=== PATIENT | female | born 1945 | race Caucasian/White ===

== ENCOUNTER → 2022-12-25 | Outpatient (CLI) | payer MEDICARE, OTHER ==
--- NOTE | 2022-12-25 15:32 | US ---
EXAMINATION TYPE: US venous doppler duplex LE BI DATE OF EXAM: 12/25/2022 12:51 PM COMPARISON: NONE CLINICAL INDICATION: Female, 77 years old with history of R60.0 LOCALIZED EDEMA; edema SIDE PERFORMED: Bilateral TECHNIQUE: The lower extremity deep venous system is examined utilizing real time linear array sonog jay jay with graded compression, doppler sonography and color-flow sonography. VESSELS IMAGED: Common Femoral Vein Deep Femoral Vein Greater Saphenous Vein * Femoral Vein Popliteal Vein Small Saphenous Vein * Proximal Calf Veins (* superficial vessels) Right Leg: Negative for DVT Left Leg: Negative for DVT IMPRESSION: No evidence for DVT within the bilateral lower extremities imaged from the groin to the upper calves.
== END | disposition home or self-care (01) ==
LOC: RADUSWWP 12:24
PROVIDERS: ATTEND Family Medicine
DX: R60.0 Localized edema (principal)
CPT/HCPCS: 93970

== ENCOUNTER → 2023-01-13 | Outpatient (CLI) | payer MEDICARE, OTHER ==
--- NOTE | 2023-01-14 07:08 | BD ---
EXAMINATION TYPE: Axial Bone Density DATE OF EXAM: 01/13/2023 CLINICAL HISTORY: 77 years old Female. ICD-10 CODE: M89.9 DISORDER OF BONE Height: 5 ft 3 in Weight: 179 FRAX RISK QUESTIONS: Alcohol (3 or more units per day): no Family History (Parent hip fracture): no Glucocorticoids (More than 3mos): yes (Ex: prednisone, prednisolone, methylprednisolone, dexamethasone, and hydrocortisone). History of Fracture in Adulthood: yes Secondary Osteoporosis: 1. Type 1 Diabetes: type 2 2. Hyperthyroidism: no 3. Menopause before 45: no 4. Malnutrition: no 5. 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 Rheumatoid Arthritis: no Current Tobacco Use: no RISK FACTORS HISTORY OF: Surgery to Spine/Hip(right/left)/Wrist (right/left): no Family History of Osteoporosis: yes Active: yes Diet low in dairy products/other sources of calcium: no Postmenopausal woman: yes Take estrogen and/or progesterone medications: no Lost more than 2 inches in height since high school: yes Frequent falls: yes Poor Health: fair Hyperparathyroidism: no Adrenal Insufficiency: no MEDICATIONS: Prednisone or other steroids: yes How Lon years Thyroid Medications: yes Which medication: levothyroxine How Lon-7 years Additional Medications: rosuvastatin, valsartan, atenolol, prednisone, gabapentin, furosemide, meloxi cam, glimepiride, januvia, levothyroxine, pioglitazone, oxybutin, insulin Additional History: EXAM MEASUREMENTS: Bone mineral densitometry was performed using the [employer] System. Bone mineral density as measured about the Lumbar spine is: ----- L1-L4(G/cm2): 1.621 T Score Values are as follows: ----- L1: 1.0 ----- L2: 3.3 ----- L3: 4.5 ----- L4: 5.1 ----- L1-L4: 3.7 Z Score Values are as follows: ----- L1: 2.2 ----- L2: 4.6 ----- L3: 5.8 ----- L4: 6.4 ----- L1-L4: 4.9 baseline Bone mineral density about the R hip (g/cm2): 0.959 Bone mineral density about the L hip (g/cm2): 0.922 T Score values are as follows: -----R Neck: -0.6 -----L Neck: -0.8 -----R Total: 0.8 -----L Total: 0.7 Z Score values are as follows: -----R Neck: 1.2 -----L Neck: 0.9 -----R Total: 2.3 -----L Total: 2.2 baseline FRAX%s: The graph provided illustrates a 22.6 % chance for a major osteoporotic fx and a 3.9 % chance for the hips probability for fx in 10 years time. IMPRESSION: Normal (Values between +1 and -1 indicate normal bone mass). Consider repeating this study in 5 year s or sooner if there is some new clinical indication. NOTE: T-SCORE=SD OF THE YOUNG ADULT MEAN.
--- NOTE | 2023-01-14 15:49 | MM ---
Reason for Exam: Screening (asymptomatic). Last mammogram was performed 2 year(s) and 4 month(s) ago. Patient History: Menarche at age 8. First Full-Term at age 20. Postmenopausal. Paternal aunt had breast cancer under age 50. Paternal grandmother had breast cancer at or over age 50. Risk Values: Masha 5 year model risk: 1.7%. NCI Lifetime model risk: 3.0%. Prior Study Comparison: 09/14/2020 Bilateral Screening Mammogram, [facility]. Tissue Density: There are scattered fibroglandular densities. Findings: Analyzed By CAD. Bilateral benign-appearing calcific patient's. There is no suspicious group of microcalcifications or new suspicious mass in either breast. Overall Assessment: Benign, BI-RAD 2 Management: Screening Mammogram of both breasts in [address] [facility] will attempt to contact patient to return for supplemental views and ultrasound if indicated. Patient should continue monthly self-breast exams. A clinical breast exam by your physician is recommended on an annual basis. This exam should not preclude additional follow-up of suspicious palpable abnormalities. Note on Masha scores and lifetime risk: 1. A Masha score greater than 3% is considered moderate risk. If this is the case, consider specialist referral to assess eligibility for a risk reducing agent. 2. If overall lifetime risk for the development of breast cancer is 20% or higher, the patient may qualify for future screening with alternating mammogram and breast MRI. Electronically signed and approved by: Lukas Granados DO
== END | disposition home or self-care (01) ==
LOC: RADMAMWWP 13:42
PROVIDERS: ATTEND Family Medicine
DX: Z12.31 Encounter for screening mammogram for malignant neoplasm of breast (principal); M89.9 Disorder of bone, unspecified; E10.9 Type 1 diabetes mellitus without complications; Z78.0 Asymptomatic menopausal state; Z80.3 Family history of malignant neoplasm of breast
CPT/HCPCS: 77063; 77067; 77080

== ENCOUNTER 2023-05-03 14:40 | Emergency (ER) | payer MEDICARE, OTHER ==
[2023-05-03 16:36] LABS: Basophils % (A) 0 %; Eosinophils # (A) 0.4 k/uL (0-0.7); Eosinophils % (A) 4 %; HCT 44.9 % (34.0-46.0); HGB 14.3 gm/dL (11.4-16.0); Lymphocytes % (A) 10 %; MCH 29.4 pg (25.0-35.0); MCV 92.1 fL (80.0-100.0); Mean Platelet Volume 7.4; Monocytes # (A) 0.5 k/uL (0-1.0); Monocytes % (A) 5 %; Neutrophils # (A) 7.5 k/uL (1.3-7.7); Neutrophils % (A) 79 %; Platelet Count 185 k/uL (150-450); RBC 4.87 m/uL (3.80-5.40); RDW 15.7 % (11.5-15.5); WBC 9.6 k/uL (3.8-10.6)
[2023-05-03 16:43] LABS: ALT 35 U/L (4-34); AST 29 U/L (14-36); African American GFR (CKD) >90 (>60 ml/min/1.73 sqM); Albumin 3.7 g/dL (3.5-5.0); Alkaline Phosphatase 45 U/L (38-126); Anion Gap 7 mmol/L; Blood Urea Nitrogen 18 mg/dL (7-17); Calcium 9.9 mg/dL (8.4-10.2); Carbon Dioxide 30 mmol/L (22-30); Chloride 99 mmol/L (98-107); Glucose 255 mg/dL (74-99); Non-African American GFR(CKD) 86 (>60 ml/min/1.73 sqM); Potassium 3.8 mmol/L (3.5-5.1); Sodium 136 mmol/L (137-145); Total Bilirubin 0.4 mg/dL (0.2-1.3); Total Protein 6.4 g/dL (6.3-8.2)
--- NOTE | 2023-05-03 18:43 | ED ---
Female Urogenital HPI - General Chief complaint: Vaginal Bleeding Stated complaint: spotting Time Seen by Provider: 05/03/23 18:01 Source: patient Mode of arrival: ambulatory Limitations: no limitations - History of Present Illness Initial comments: 77-year-old female presenting to the ED with a chief complaint of vaginal bleeding. Patient states for the past 2-3 days has had some lower abdominal cramping and vaginal spotting. Reports minimal pad usage over the past few days. Denies lightheadedness or dizziness. Notes that she is passing blood cl ots when she urinates however is unsure if this is coming from her urine or from her vagina however denies dysuria, frequency, urgency. Currently notes abdominal pain resolved. No chest pain or shortness of breath. No other complaints. - Related Data Allergies Allergy/AdvReac Type Severity Reaction Status Date / Time Penicillins Allergy Rash/Hives Verified 05/03/23 14:50 Sulfa (Sulfonamide Allergy Rash/Hives Verified 05/03/23 14:50 Antibiotics) Review of Systems ROS Statement: Those systems with pertinent positive or pertinent negative responses have been documented in the HPI. ROS Other: All systems not noted in ROS Statement are negative. Past Medical History Past Medical History: Coronary Artery Disease (CAD), Diabetes Mellitus, Rheumatoid Arthritis (RA) History of Any Multi-Drug Resistant Organisms: None Reported Past Surgical History: Orthopedic Surgery, Tubal Ligation Additional Past Surgical History / Comment(s): Tumor on back of her head. Past Psychological History: No Psychological Hx Reported Smoking Status: Never smoker Past Alcohol Use History: None Reported Past Drug Use History: None Reported General Exam Limitations: no limitations General appearance: alert, in no apparent distress Neck exam: Present: normal inspection Respiratory exam: Present: normal lung sounds bilaterally Cardiovascular Exam: Present: regular rate, normal rhythm GI/Abdominal exam: Present: soft External exam: Present: other (Exam chaperoned by Janette BELLO. Small clot noted in vaginal vault with no active bleeding. Bimanual exam showed left adnexal tenderness to palpation however no obvious masses noted.) Neurological exam: Present: alert, oriented X3 Skin exam: Present: warm, dry Course Vital Signs 05/03/23 14:46 Temperature 98.1 F Pulse Rate 64 Respiratory 20 Rate Blood Pressure 213/88 O2 Sat by Pulse 96 Oximetry Medical Decision Making - Medical Decision Making Was pt. sent in by a medical professional or institution (JOSHUA Brown, PARLIAMENTARY LIBRARIAN, urgent care, hospital, or [place] health care facility...) When possible be specific @ -No Did you speak to anyone other than the patient for history (EMS, parent, family, police, friend...)? What history was obtained from this source @ -No Did you review nursing and triage notes (agree or disagree)? Why? @ -I reviewed and agree with nursing and triage notes Were old charts reviewed (outside hosp., previous admission, EMS record, old EKG, old radiological studies, urgent care reports/EKG's, [place] health care facility records)? Report findings @ -No old charts were reviewed Differential Diagnosis (chest pain, altered mental status, abdominal pain women, abdominal pain men, vaginal bleeding, weakness, fever, dyspnea, syncope, headache, dizziness, GI bleed, back pain, seizure, CVA, palpatations, mental h ealth, musculoskeletal)? @ -Differential Vaginal Bleeding: Spontaneous , threatened , molar , ectopic , bloody show, incompetent cervix, abruptioplacenta, placenta previa, uterine rupture, dysfunctional uterine bleeding, hemorrhage, uterine fibroids, this is not meant to be an all-inclusive list. EKG interpreted by me (3pts min.). @ -None X-rays interpreted by me (1pt min.). @ -None done CT interpreted by me (1pt min.). @ -None done U/S interpreted by me (1pt. min.). @ -Transvaginal ultrasound interpreted by me showing thickened endometrium with endometrial stripe measuring 0.2 cm. What testing was considered but not performed or refused? (CT, X-rays, U/S, labs)? Why? @ -None What meds were considered but not given or refused? Why? @ -None Did you discuss the management of the patient with other professionals (professionals i.e. JOSHUA Brown, PARLIAMENTARY LIBRARIAN, lab, RT, psych nurse, 7th grade social studies teacher, botanical technical officer, teacher, chief diversity officer, high risk case manager)? Give summary @ -Spoke to Dr. Kat of [facility] who advised patient can call office on Thursday and receive an appointment within a week to two weeks. Was smoking cessation discussed for >3mins.? @ -No Was critical care preformed (if so, how long)? @ -No Were there social determinants of health that impacted care today? How? (Homelessness, low income, unemployed, alcoholism, drug addiction, transportation, low edu. Level, literacy, decrease access to med. care, penitentiary, rehab)? @ -No Was there de-escalation of care discussed even if they declined (Discuss DNR or withdrawal of care, Hospice)? DNR status @ -No What co-morbidities impacted this encounter? (DM, HTN, Smoking, COPD, CAD, Cancer, CVA, ARF, Chemo, Hep., AIDS, mental health diagnosis, sleep apnea, morbid obesity)? @ -None Was patient admitted / discharged? Hospital course, mention meds given and route, prescriptions, significant lab abnormalities, going to OR and other pertinent info. @ -Discharge 77-year-old female presenting to the ED with 2-3 days of abdominal cramping and vaginal spotting. At this time, cramping resolved. Pelvic exam did reveal small clot however no active bleeding. Before Toney studies including CBC, chemistry panel, UA unremarkable. Transvaginal ultrasound did show a thickened endometrium with endometrial stripe measuring 0.2 cm concerning for malignancy. Had lengthy discussion with patient about results. Patient will follow-up with Dr. Kat's office in a week. At this time, patient has no complaints of dizziness, lightheadedness, abdominal pain. She discharged home in stable condition. Discussed return precautions patient verbalized agreement. Undiagnosed new problem with uncertain prognosis? @ -No Drug Therapy requiring intensive monitoring for toxicity (Heparin, Nitro, Insulin, Cardizem)? @ -No Were any procedures done? @ -No Diagnosis/symptom? @ -Vaginal bleeding Acute, or Chronic, or Acute on Chronic? @ -Acute Uncomplicated (without systemic symptoms) or Complicated (systemic symptoms)? @ -Uncomplicated Side effects of treatment? @ -No Exacerbation, Progression, or Severe Exacerbation? @ -No Poses a threat to life or bodily function? How? (Chest pain, [place], [place], pneumonia, PE, COPD, DKA, ARF, appy, cholecystitis, CVA, Diverticulitis, Homicidal, Suic idal, threat to staff... and all critical care pts) @ -No - Lab Data Result diagrams: 05/03/23 16:23 05/03/23 16:29 Lab Results 10/15/23 10/15/23 10/15/23 Range/Units 16:23 16:29 18:39 WBC 9.6 (3.8-10.6) k/uL RBC 4.87 (3.80-5.40) m/uL Hgb 14.3 (11.4-16.0) gm/dL Hct 44.9 (34.0-46.0) % MCV 92.1 (80.0-100.0) fL MCH 29.4 (25.0-35.0) pg MCHC 32.0 (31.0-37.0) g/dL RDW 15.7 H (11.5-15.5) % Plt Count 185 (150-450) k/uL MPV 7.4 Neutrophils % 79 % Lymphocytes % 10 % Monocytes % 5 % Eosinophils % 4 % Basophils % 0 % Neutrophils # 7.5 (1.3-7.7) k/uL Lymphocytes # 1.0 (1.0-4.8) k/uL Monocytes # 0.5 (0-1.0) k/uL Eosinophils # 0.4 (0-0.7) k/uL Basophils # 0.0 (0-0.2) k/uL Sodium 136 L (137-145) mmol/L Potassium 3.8 (3.5-5.1) mmol/L Chloride 99 (98-107) mmol/L Carbon Dioxide 30 (22-30) mmol/L Anion Gap 7 mmol/L BUN 18 H (7-17) mg/dL Creatinine 0.65 (0.52-1.04) mg/dL Est GFR (CKD-EPI)AfAm >90 (>60 ml/min/1.73 sqM) Est GFR (CKD-EPI)NonAf 86 (>60 ml/min/1.73 sqM) Glucose 255 H (74-99) mg/dL Calcium 9.9 (8.4-10.2) mg/dL Total Bilirubin 0.4 (0.2-1.3) mg/dL AST 29 (14-36) U/L ALT 35 H (4-34) U/L Alkaline Phosphatase 45 (38-126) U/L Total Protein 6.4 (6.3-8.2) g/dL Albumin 3.7 (3.5-5.0) g/dL Urine Color Light Red Urine Appearance Clear (Clear) Urine pH 6.5 (5.0-8.0) Ur Specific [place] 1.010 (1.001-1.035) Urine Protein 1+ H (Negative) Urine Glucose (UA) Negative (Negative) Urine Ketones Negative (Negative) Urine Blood Large H (Negative) Urine Nitrite Negative (Negative) Urine Bilirubin Negative (Negative) Urine Urobilinogen <2.0 (<2.0) mg/dL Ur Leukocyte Esterase Trace H (Negative) Urine RBC >182 H (0-5) /hpf Urine WBC 2 (0-5) /hpf Ur Squamous Epith Cells 1 (0-4) /hpf Disposition Clinical Impression: Vaginal bleeding, Endometrial thickening on ultrasound Disposition: HOME SELF-CARE Condition: Good Additional Instructions: Please return to the Emergency Department if symptoms worsen or any other concerns. Please follow up with Dr. Kat's office. Is patient prescribed a controlled substance at d/c from ED?: No Referrals: Deanna Cooper MD [Primary Care Provider] - 1-2 days Karla Kat DO [Doctor of Osteopathic Medicine] - 1-2 days Time of Disposition: 20:42
[2023-05-03 19:05] LABS: Appearance,Urine Clear (Clear); Bilirubin,Urine Negative (Negative); Blood,Urine Large (Negative); Color,Urine Light Red; Glucose,Urine (UA) Negative (Negative); Ketones,Urine Negative (Negative); Leukocyte Esterase,Urine Trace (Negative); Nitrite,Urine Negative (Negative); PH, Urine 6.5 (5.0-8.0); Protein,Urine 1+ (Negative); RBC,Urine >182 /hpf (0-5); Squamous Epithelial Cell,Urine 1 /hpf (0-4); Urobilinogen,Urine <2.0 mg/dL (<2.0); WBC,Urine 2 /hpf (0-5)
--- NOTE | 2023-05-03 19:36 | US ---
EXAMINATION TYPE: US transvaginal DATE OF EXAM: 05/03/2023 COMPARISON: NONE CLINICAL INDICATION: Female, 77 years old with history of postmenopausal vag bleed; patient unsure if spotting is vaginal or not, started a few days ago, tubal ligation TECHNIQUE: TV. Transvaginal sonographic images Date of LMP: 30 years ago EXAM MEASUREMENTS: Uterus: 5.0 x 2.7 x 3.7 cm Endometrial Stripe: 0.2 cm Right Ovary: not seen Left Ovary: not seen 1. Uterus: Anteverted atropic, wnl 2. Endometrium: 5mm of anechoic fluid seen within canal 3. Right Ovary: not seen due to atrophy and or bowel gas 4. Left Ovary: not seen due to atrophy and or bowel gas 5. Bilateral Adnexa: wnl 6. Posterior cul-de-sac: wnl IMPRESSION: 1. Thickened endometrium for a postmenopausal patient. Given recent history of surgical intervention and fluid within the canal could be partially post procedural possible blood process. Short-term fol low-up recommended for more accurate endometrial thickness measurement. 2. Nonvisualization of the ovaries secondary to bowel gas.
[2023-05-03 21:16] VITALS: BP 199/84; PULSE 77; RESP 16; TEMP 96.7
== END 2023-05-03 21:17 | disposition home or self-care (01) ==
LOC: EC 14:40
DX: N93.9 Abnormal uterine and vaginal bleeding, unspecified (principal); N85.00 Endometrial hyperplasia, unspecified; I25.10 Atherosclerotic heart disease of native coronary artery without angina pectoris; E11.9 Type 2 diabetes mellitus without complications; Z88.0 Allergy status to penicillin; Z88.2 Allergy status to sulfonamides
CPT/HCPCS: 36415; 76830; 80053; 81001; 85025; 99284

== ENCOUNTER → 2023-06-03 | Outpatient (CLI) | payer MEDICARE, OTHER ==
[2023-06-03 13:08] LABS: African American GFR (CKD) >90 (>60 ml/min/1.73 sqM); Blood Urea Nitrogen 16 mg/dL (7-17); Non-African American GFR(CKD) 83 (>60 ml/min/1.73 sqM)
--- NOTE | 2023-06-07 20:36 | CT ---
EXAMINATION TYPE: CT abdomen pelvis w con DATE OF EXAM: 06/03/2023 COMPARISON: Correlation ultrasound 05/03/2023 HISTORY: 78-year-old female R1 0.2, abdominal/pelvic pain TECHNIQUE: Contiguous axial scanning of the abdomen and pelvis following administration of 100 ml Iso germaine 300 IV contrast. Delayed images through the kidneys and coronal/sagittal reconstructions perform ed. CT DLP: 1605 mGycm Automated exposure control for dose reduction was used. FINDINGS: The heart is normal size without pericardial effusion. * Subpleural nodule measuring 8 mm posteromedial left lower lobe. * 7 mm nodule medial left major fissure likely intrafissural lymph node. * 4 mm subpleural pulmonary nodule posteromedial right base. * Tiny calcified granuloma left lower lung. Small hiatal hernia. 6 mm hypodensity lateral right upper lobe small fractures characterization, likely a small cyst. Port al venous system is patent. No biliary ductal dilatation. Adrenal glands, spleen small inferior splenule within normal limits. A couple of cysts within the pancreas one near the uncinate process image 39 and a second pancreatic tail measuring 1.9 cm and 1.9 mm at the tip of the pancreatic tail on axial images 31 and 29, respect ively. Reassess status 6 month follow up pancreas MRI. Multiple cortical cysts within the kidneys measuring up to 2.3 cm. A fat density cortical lesion marlee uring 1.0 cm is present along the medial aspect of the right kidney suggestive of an benign AML. Symm etric uptake and excretion of contrast from both kidneys. No dilated small bowel, free fluid, or free air. No mesenteric or retroperitoneal lymphadenopathy. Normal appendix. There is moderate stool burden. Generalized colonic diverticulosis, sigmoid colon. Minimal stranding at the junction of the descending and sigmoid colon, axial image 65 is suspected to represent prominent pericolonic vessels rather than inflammation. Clinically correlate. Bladder urine distended. Uterus anteverted. Both ovaries are visualized. No abnormal fluid collection in the pelvis or pelvic lymphadenopathy. Bones: Moderate degenerative changes right hip and mild at the left hip. Moderate spondylotic change throughout the lumbar spine. IMPRESSION: 1. GENERALIZED COLONIC DIVERTICULOSIS, EXTENSIVE IN THE SIGMOID COLON. THERE IS SOME PROMINENT KAMARI LONIC STRANDING AT THE JUNCTION OF THE DESCENDING AND SIGMOID COLON FAVORED TO REPRESENT PROMINENT PE RICOLONIC VESSELS RATHER THAN CHANGES OF MILD ACUTE DIVERTICULITIS. CLINICALLY CORRELATE. 2. ENDOMETRIAL STRIPE THICKENING SEEN ON PATIENT'S RECENT ULTRASOUND IS NOT APPARENT BY CT. NO ABNORM AL LYMPHADENOPATHY IS IDENTIFIED. APPROPRIATE ULTRASOUND AND DENTAL PRACTITIONER FOLLOW-UP RECOMMENDED FOR THE END OMETRIUM. 3. A FEW PULMONARY NODULES AT THE LUNG BASES MEASURING UP TO 8 MM. RECOMMEND THREE-MONTH FOLLOW-UP CT CHEST TO REASSESS THESE NODULES AND ALSO TO SURVEY THE REMAINDER OF THE LUNGS. 4. SMALL HIATAL HERNIA AND MODERATE STOOL BURDEN.
== END | disposition home or self-care (01) ==
LOC: RADCTMAIN 12:25
PROVIDERS: ATTEND Family Medicine
DX: R10.2 Pelvic and perineal pain (principal); K57.30 Diverticulosis of large intestine without perforation or abscess without bleeding; R91.8 Other nonspecific abnormal finding of lung field; K44.9 Diaphragmatic hernia without obstruction or gangrene; R19.5 Other fecal abnormalities; R93.89 Abnormal findings on diagnostic imaging of other specified body structures
CPT/HCPCS: 82565; 84520; 74177; 36415; Q9967

== ENCOUNTER → 2023-09-22 | Outpatient (CLI) | payer MEDICARE, OTHER ==
[2023-09-22 13:46] LABS: African American GFR (CKD) 44 (>60 ml/min/1.73 sqM); Blood Urea Nitrogen 43 mg/dL (7-17); Non-African American GFR(CKD) 39 (>60 ml/min/1.73 sqM)
--- NOTE | 2023-09-22 15:15 | CT ---
Exam: CT Chest without contrast. Date: 09/22/2023. Comparison: CT abdomen and pelvis on 06/03/2023. History: Nodule seen on prior abdomen and pelvis study. Technique: CT examination of the chest was performed without contrast. Coronal and sagittal reformats were performed. CT dose lowering techniques were used, to include: automated exposure control, adjus tment for patient size, and/or use of iterative reconstruction. FINDINGS: Mediastinum and Lisa: There is no axillary, mediastinal or hilar lymphadenopathy. Pleural and Pericardial spaces: There are no pleural or pericardial effusions. Upper Abdomen: There is a small sliding hiatal hernia. There are some scattered colonic diverticuli v isualized upper abdomen without evidence of diverticulitis. Cardiovascular: There is mild vascular calcifications throughout the thoracic aorta without evidence of aneurysmal dilation. Lung Parenchyma and Airways: There is a 7.6 mm right upper lobe pulmonary nodule on series 4 image 26 which was not included on the [id number] of the prior CT abdomen and pelvis. There is a 4.[address] eural-based nodule in the right lower lobe on series 4 image 41. There is a 1.2 cm pleural-based nodu le in the left lower lobe on series 4 image 37. This previously measured approximately 8 mm. Bones: There is significant osteoarthritis of the right glenohumeral joint. Scattered degenerative di sc changes are seen throughout the spine. There are no acute osseous abnormalities. IMPRESSION: 1. Pulmonary nodules as above. Pleural-based nodule in the left lower lobe appears larger than the pr evious examination and pleural-based nodule in the right lower lobe appears unchanged. Additional nod ule in the right upper lobe was not included on the [id number] of the previous examination. Given the increase in size of the nodular density consider PET CT at this time versus 3 month follow-up.
--- NOTE | 2023-09-23 08:57 | MR ---
EXAMINATION TYPE: MR abdomen wo/w con DATE OF EXAM: 09/22/2023 3:33 PM CLINICAL INDICATION:Female, 78 years old with history of R91.8 ABNORMAL FINDING OF LUNG FIELD D37.8; PHH, Abnormal findings on prior imaging, Pain abdominal area on both sides COMPARISON: 06/03/2023 TECHNIQUE: Multiplanar multi-sequence imaging was performed without contrast. Post contrast imaging was performed. Post IV contrast subtraction images were also submitted for review. IV Contrast: 7.5 cc Gadavist FINDINGS: LOWER CHEST: No gross irregularity. ABDOMEN Liver: No evidence for hepatic steatosis or cirrhosis. Gallbladder and Bile ducts: No evidence for ductal dilation, or biliary stricture or evidence of chol edocholithiasis. The gallbladder is within normal limits. Pancreas: No ductal dilation. No evidence for solid mass. Scattered pancreatic high T2 signal lesions throughout the gland . Largest measuring the pancreatic head up to 13 x 7 mm in the pancreatic tail measuring up to 12 x 7 mm. No abnormal postcontrast enhancement. Spleen: Normal for size. Adrenal glands: Unremarkable. Kidneys: No evidence for obstructive uropathy. No suspicious renal masses. Scattered high T2 signal c ysts bilaterally. Stomach and No evidence for bowel wall thickening or evidence for obstruction. Peritoneum: No evidence of pneumoperitoneum or free fluid. Vasculature: No aortic aneurysm. Musculoskeletal: The osseous structures appear intact. Lymph Nodes: No gross evidence for lymphadenopathy. Abdominal wall: Unremarkable. IMPRESSION: 1. Scattered pancreatic cysts possibly related to sequela of chronic pancreatitis with pseudocysts v ersus less likely pancreatic cystic neoplasm such as intraductal papillary mucinous neoplasms. Consid er follow-up imaging in one year to ensure stability with MRI MRCP with IV contrast. 2. Bilateral simple appearing renal cysts/ 3. No acute abdominal process to explain the patient's pain.
== END | disposition home or self-care (01) ==
LOC: RADCTMAIN 12:19
PROVIDERS: ATTEND Family Medicine
DX: K86.2 Cyst of pancreas (principal); N28.1 Cyst of kidney, acquired; R91.8 Other nonspecific abnormal finding of lung field; D37.8 Neoplasm of uncertain behavior of other specified digestive organs; J94.8 Other specified pleural conditions
CPT/HCPCS: 82565; 84520; 71250; 74183; A9585

== ENCOUNTER 2023-09-25 10:04 | Day surgery (SDC) | payer MEDICARE, OTHER ==
[2023-09-23 15:56] VITALS: BMI 29.5
[~2023-09-25 10:04] MED LIST: LIDOCAINE 1% (10MG/ML) FOR IV START INTRADERMA PRN
[2023-09-25] MEDS: LACTATED RINGERS 1,000 ML IV SCH (10:32)
[2023-09-25] MEDS: INSULIN ASPART (NovoLOG) 100 UNIT/ML VIAL SQ ONE (10:55)
[2023-09-25 10:56] LABS: Glucose,Whole Blood 272 mg/dL (70-110)
[2023-09-25 11:12] VITALS: TEMP 97.2
[2023-09-25] MEDS ORDERED: PROPOFOL 10 MG/ML 20 ML VIAL IV ONE (11:20)
--- NOTE | 2023-09-25 11:33 | P.PCN ---
Date of Procedure: 09/25/23 Procedure(s) Performed: BRIEF HISTORY: Patient is a 78-year-old pleasant white female scheduled for an elective colonoscopy as a part of evaluation of prior history of colon polyps. According to the patient her last colonoscopy was 3 years ago. PROCEDURE PERFORMED: Colonoscopy. PREOPERATIVE DIAGNOSIS: History of colon polyps. IV sedation per Anesthesia. PROCEDURE: After informed consent was obtained, the patient, was brought into the endoscopy unit. IV sedation was administered by Anesthesia under continuous monitoring. Digital rectal examination was normal. Initially the Olympus CF-160 flexible video colonoscope was then inserted in the rectum, gradually advanced into the cecum without any difficulty. Careful examination was performed as the scope was gradually being withdrawn. Ileocecal valve and the appendiceal orifice were visualized and appeared normal. Prep was excellent. Mucosa of the cecum, ascending colon, transverse colon, descending colon, sigmoid colon, and rectum appeared normal. scattered sigmoid diverticula cyst. Retroflexion was performed in the rectum and small internal hemorrhoidswere seen. The patient tolerated the procedure well. IMPRESSION: Normal-appearing colon from rectum to cecum with no evidence of colorectal neoplasia Moderate sigmoid diverticulosis Small internal hemorrhoids . RECOMMENDATIONS: Findings of this examination were discussed with the patient as well as her family. She was advised to be a high-fiber diet and take Supplements a regular basis..
[2023-09-25 12:20] VITALS: BP 140/70; PULSE 70; RESP 20
== END 2023-09-25 14:05 | disposition home or self-care (01) ==
LOC: ORWHC2ENDO 10:04
PROVIDERS: ATTEND Internal Medicine Gastroenterology
DX: Z12.11 Encounter for screening for malignant neoplasm of colon (principal); K57.30 Diverticulosis of large intestine without perforation or abscess without bleeding; K64.8 Other hemorrhoids; I25.10 Atherosclerotic heart disease of native coronary artery without angina pectoris; I10 Essential (primary) hypertension; E78.5 Hyperlipidemia, unspecified; E11.9 Type 2 diabetes mellitus without complications; E07.9 Disorder of thyroid, unspecified; M06.9 Rheumatoid arthritis, unspecified; F32.A Depression, unspecified; K21.9 Gastro-esophageal reflux disease without esophagitis; Z79.4 Long term (current) use of insulin; Z98.51 Tubal ligation status; Z98.890 Other specified postprocedural states; Z79.01 Long term (current) use of anticoagulants; Z88.2 Allergy status to sulfonamides; Z88.0 Allergy status to penicillin; Z79.890 Hormone replacement therapy; Z86.010 Personal history of colon polyps; Z79.899 Other long term (current) drug therapy

== ENCOUNTER → 2023-10-29 | Outpatient (CLI) | payer MEDICARE, OTHER ==
--- NOTE | 2023-10-30 15:32 | PE ---
EXAMINATION TYPE: PET CT fusion skull to thigh DATE OF EXAM: 10/29/2023 CLINICAL INDICATION:Female, 78 years old with history of R91.1 SOLITARY PULMONARY NODULE; TECHNIQUE: Following the intravenous administration of 11.96 mCi of F-18 FDG, whole body images are performed from the skull base to the midthigh. Images are reviewed on the computer in the coronal, axial, and sagittal planes. Reconstructed rotating images are created on independent workstation and reviewed on the computer. A non-contrast CT is performed in conjunction with the PET scan. Glucose level 144 mg/dL CT DLP: 634 mGycm, Automated exposure control for dose reduction was used. COMPARISON: CT 09/22/2023, PET/CT None, FINDINGS: Mediastinal SUV mean is 2.7. Hepatic parenchyma SUV mean is 4.1. SKULL BASE AND NECK: No suspicious radiotracer activity. CHEST, MEDIASTINUM, AND HILAR REGION: * 6 mm right upper lobe lobe pulmonary nodule medially is stable from 09/22/2023 max SUV 3.0 * Elongated solid nodule in the subpleural region of the left lower lung medially measuring 11 x 4 m m is unchanged accessing the 1.8. * Right lower lobe medial nodule seen on prior's not definitively visualized may been atelectasis on prior. ABDOMEN AND PELVIS: No suspicious radiotracer activity. MUSCULOSKELETAL STRUCTURES: No suspicious radiotracer activity. Extensive uptake around the right shoulder likely on a degenerative basis max is 56.1. OTHER CT: Atherosclerosis of the carotid bifurcations. Severe degeneration changes of the right shoulder with joint effusion. Heart is mildly enlarged for size. Aortic valve ca lcifications and aortic coronary artery cusp patient's. A splenule is present. Scattered colonic dive rticula. The appendix is normal. Small hiatal hernia. IMPRESSION: 1. Mild uptake within the right upper lung pulmonary nodule measuring 6 mm, findings concerning for early malignancy. 2. No significant uptake within the left lower lung subpleural consolidation/nodule at this time. Dalal rveillance with CT imaging recommended for this nodule in 3-6 months. 3. Severe degeneration changes around the right shoulder with uptake of the synovium suggesting syno vitis.
== END | disposition home or self-care (01) ==
LOC: RADPETMAIN 11:41
PROVIDERS: ATTEND Family Medicine
DX: R91.1 Solitary pulmonary nodule (principal); M19.011 Primary osteoarthritis, right shoulder
CPT/HCPCS: 78815; A9552

== ENCOUNTER → 2023-11-05 | Outpatient (CLI) | payer MEDICARE, OTHER ==
--- NOTE | 2023-11-05 16:27 | XR ---
EXAMINATION TYPE: XR lumbar spine 3V, XR sacroiliac joint comp 3 views BILAT DATE OF EXAM: 11/05/2023 Comparison: None Clinical History: 78-year-old female M46.1 Findings: Lumbar spine: Severe disc/endplate degenerative change particularly L2-L5 levels. Severe hypertrophic facet arthrop athy mid to lower lumbar spine. Alignment is maintained. Vertebral body heights preserved. SI joints: Symmetric and intact. Mild degenerative change on the right. Vascular calcifications. Small delineati on to the arcuate lines of the sacrum. No subarticular erosions are seen. Osteitis pubis. Impression: 1. Lumbar spine: Severe disc/endplate degenerative change and severe hypertrophic facet arthropathy e specially mid to lower lumbar spine. No vertebral compression collapse or malalignment. 2. SI joints: Mild right SI joint OA. Osteitis pubis.
== END | disposition home or self-care (01) ==
LOC: RADXRMAIN 12:44
PROVIDERS: ATTEND Family Medicine
DX: M47.816 Spondylosis without myelopathy or radiculopathy, lumbar region (principal)
CPT/HCPCS: 72100; 72202

== ENCOUNTER → 2023-12-10 | Outpatient (CLI) | payer MEDICARE, OTHER ==
--- NOTE | 2023-12-10 22:03 | XR ---
EXAMINATION TYPE: XR lumbar spine 2 or 3V DATE OF EXAM: 12/10/2023 COMPARISON: 11/05/2023 HISTORY: Pain lower back TECHNIQUE: Three-view lumbar spine FINDINGS: There are 5 lumbar-type vertebral bodies. Pedicles are intact. There is loss of disc height L2-3 through L5-S1. Vacuum disc phenomenon is present. Vertebral body heights are preserved. Alignme nt appears preserved. IMPRESSION: 1. Advanced degenerative disc changes lumbar spine, stable from comparison
== END | disposition home or self-care (01) ==
LOC: RADXRMAIN 16:42
PROVIDERS: ATTEND Family Medicine
DX: M51.16 Intervertebral disc disorders with radiculopathy, lumbar region (principal)
CPT/HCPCS: 72100

== ENCOUNTER → 2024-01-18 | Outpatient (CLI) | payer MEDICARE, OTHER | END | disposition home or self-care (01) | LOC: RADMAMWWP 13:51 | PROVIDERS: ATTEND Family Medicine | DX: Z53.9 Procedure and treatment not carried out, unspecified reason (principal) ==

== ENCOUNTER → 2024-01-20 | Outpatient (CLI) | payer MEDICARE, OTHER ==
--- NOTE | 2024-01-26 13:20 | MM ---
Reason for Exam: Screening (asymptomatic). Last mammogram was performed 1 year(s) and 1 month(s) ago. Patient History: Menarche at age 8. First Full-Term at age 20. Postmenopausal. Patient has history of breast feeding. Paternal aunt had breast cancer under age 50. Risk Values: Masha 5 year model risk: 1.7%. NCI Lifetime model risk: 2.8%. Prior Study Comparison: 09/14/2020 Bilateral Screening Mammogram, [facility]. 01/13/2023 Bilateral MG 3D screening mammo w/cad, [facility]. Tissue Density: There are scattered areas of fibroglandular density. Findings: Analyzed By CAD. Right breast: There is no suspicious group of microcalcifications or new suspicious mass. Benign-appearing calcifications right breast. Left breast: There is no suspicious group of microcalcifications or new suspicious mass. Benign-appearing calcifications left breast. Overall Assessment: Benign, BI-RAD 2 Management: Screening Mammogram of both breasts in [address] [facility] will attempt to contact patient to return for supplemental views and ultrasound if indicated. Patient should continue monthly self-breast exams. A clinical breast exam by your physician is recommended on an annual basis. This exam should not preclude additional follow-up of suspicious palpable abnormalities. Note on Masha scores and lifetime risk: 1. A Masha score greater than 3% is considered moderate risk. If this is the case, consider specialist referral to assess eligibility for a risk reducing agent. 2. If overall lifetime risk for the development of breast cancer is 20% or higher, the patient may qualify for future screening with alternating mammogram and breast MRI. Electronically signed and approved by: Lukas Granados DO
== END | disposition home or self-care (01) ==
LOC: RADMAMWWP 13:09
PROVIDERS: ATTEND Family Medicine
DX: Z12.31 Encounter for screening mammogram for malignant neoplasm of breast (principal); Z78.0 Asymptomatic menopausal state; Z80.3 Family history of malignant neoplasm of breast
CPT/HCPCS: 77063; 77067

== ENCOUNTER → 2024-01-25 | Outpatient (CLI) | payer MEDICARE, OTHER ==
[2024-01-25 16:11] LABS: African American GFR (CKD) >90 (>60 ml/min/1.73 sqM); Blood Urea Nitrogen 21 mg/dL (7-17); Non-African American GFR(CKD) 81 (>60 ml/min/1.73 sqM)
--- NOTE | 2024-01-27 21:58 | CT ---
EXAMINATION TYPE: CT chest w con DATE OF EXAM: 01/25/2024 COMPARISON: 09/22/2023 HISTORY: Abnormal findings on prior exam CT DLP: 432.2 mGycm, Automated exposure control for dose reduction was used. CONTRAST: Performed injected with 100 mL of Isovue 300. TECHNIQUE: Axial images were obtained at 5 mm thick sections. Reconstructed images are reviewed on [employer] [address] computer in the coronal plane. FINDINGS: Portion of the thyroid visualized is normal. There is a 1.0 cm nodule anterior medial mid right lung. Series 4 image 23. Previous measurement 0.8 cm. This has enlarged over the interval. Additional workup with PET CT is recommended. There is some pleural thickening with irregular margin along posterior medial left lung base, series 4 image 34. This measures 1.3 cm x 0.5 cm. Previous measurements 1.1 x 0.4 cm. No enlarged mediastinal or hilar adenopathy is evident. The ascending aorta diameter at the level o f the main pulmonary artery is 3.2 cm. The main pulmonary artery diameter at the bifurcation is 2.[address] sections are obtained through the upper abdomen. Cortical renal cysts are at the superior pole left kidney IMPRESSION: 1. Enlarging right nodule. Additional workup with PET CT is recommended.
== END | disposition home or self-care (01) ==
LOC: RADMRIMAIN 14:59
PROVIDERS: ATTEND Family Medicine
DX: M51.06 Intervertebral disc disorders with myelopathy, lumbar region (principal); R91.1 Solitary pulmonary nodule
CPT/HCPCS: 82565; 84520; 71260; 36415; 72148; Q9967

== ENCOUNTER → 2024-05-02 | Outpatient (CLI) | payer MEDICARE, OTHER ==
[2024-05-02 13:32] VITALS: BP 179/75; PULSE 60; RESP 16
--- NOTE | 2024-05-02 14:52 | P.PAINPG ---
PQRS Measure Charge Sheet Comment: HISTORY OF PRESENT ILLNESS: A 78 yr old female w daughter at side as a referral from Dr Cooper presents today w severe and chronic LBP > 1 yr secondary to radiculopathy, spondylosis and facet arthropathy without myelopathy for evaluation. Pt states pain level is provoked at 7 /10 in intensity, constant, localized in the lower lumbar sine, predominantly axial, achy in character w occasional shooting pain towards the BL calves. Pain is provoked by standing/ walking for periods > 10 min. Pain is alleviated by physician guided home stretches daily since Oct 2023, heat, medications (Prednisone), manual massage, repositioning and rest . PMH: OA, CAD, NIDDM II, RA PSH: Colonoscopy (2023), Tubal Ligation SH: Negative x3 FH: Non contributory All: See list Meds: See list REVIEW OF ORGAN SYSTEMS: CONSTITUTIONAL: No fevers or chills. No recent weight loss. NEUROLOGICAL: + numbness and tingling along the distal extremities. No seizure disorders or headaches. MUSCULOSKELETAL: + pain PSYCHIATRIC: Denies current depression or suicidal thoughts. Physical Examinations : Constitutional : Cooperative , not in acute distress . Neurologic : Cranial nerve II to XII intact. No focal neurological deficits. Psychiatric : alert & oriented x 3. Matching mood & appropriate affect. Judgment & insight intact. Musculoskeletal : Cervical Spine Motor strength in the deltoid and biceps: Normal right side. Normal Left side Motor strength biceps and the wrist extensors: Normal right side . Normal left side Motor strength in the triceps muscle: Normal right side. Normal left side Deep tendon reflexes: Normal at the biceps. Normal at Brachioradialis. Normal at triceps Vertebral body tenderness to deep palpation over Cervical facet loading test: positive bilaterally Spurling test: positive bilaterally Neck distraction test: positive bilaterally Warren sign: positive bilaterally Lumbar spine Motor strength lower extremities ,thigh and legs 5/5 Right side , 5/5 Left side Deep tendon reflexes : Normal Knee Jerk. Normal Ankle Jerk Vertebral body tenderness over L5 Thakkar Test positive BL L5-S1 Lumbar facet Loading Test: positive Right / positive Left Range of motion of the lumbar spine Flexion 30 degrees, extension 10 degrees Straight Leg Raise test: Left/ Right positive at degrees Rhianna test: positive right / positive left. Severe tenderness over the Sacroiliac joint on the Right / Left sides Gaenslen test: positive bilaterally Seated flexion test: positive bilaterally. Sacral spine : Severe tenderness over the Sacroiliac joint: right side / left side Range of motion: Flexion of the lumbar spine <60 degrees Range of motion: Extension of the lumbar spine <20 degrees Gaenslen's Test positive Rhianna test: positive right side / left side Thigh Thrust Test Sacral Thrust Test Imaging: MRI non contrast lumbar spine from 01/25/24 reviewed Assessment/ Plan : Lumbar radiculopathy Recommendation of SAMANTHA L5-S1 #1. Risks, benefits of procedure discussed and patient verbalized understanding. Admits to anti- coagulant use or medical history of diabetes. Protocol for discontinuation/ continuation of medications dena procedure discussed. All questions answered. I have spent greater than 30 minutes on patient care today. Dr Gilbert was available by phone for the evaluation of this patient. The time was used to review the medical records including relevant urine studies and Prescription history (MAPs), review of the available imaging, evaluation and examination of the patient, coordination of care with the medical staff and if applicable referring physicians, as well as creation of the medical record Home Medications: Ambulatory Orders Chlorthalidone 25 mg PO DAILY 09/23/23 Cholecalciferol (Vitamin D3) [Vitamin D3 (125 MCG = 5,000 IU)] 125 mcg PO DAILY 09/23/23 Cyanocobalamin (Vitamin B-12) [Vitamin B-12] 1,000 mcg PO DAILY 09/23/23 Gabapentin 600 mg PO BID 09/23/23 Glimepiride 4 mg PO BID 09/23/23 Levothyroxine Sodium [Synthroid] 75 mcg PO QAM 09/23/23 Losartan [Cozaar] 50 mg PO HS 09/23/23 Meloxicam [Mobic] 15 mg PO DAILY 09/23/23 Pioglitazone [Actos] 30 mg PO DAILY 09/23/23 Vit No.179/Iron/Folic [ Tablet] 1 each PO DAILY 09/23/23 Rosuvastatin Calcium 10 mg PO DAILY 09/23/23 Valsartan 320 mg PO HS 09/23/23 atenoloL 100 mg PO QAM 09/23/23 oxyBUTYnin chloride 5 mg PO DAILY 09/23/23 predniSONE 2 mg PO QAM 09/23/23 Controlled Substance Measures - Controlled Substance Measures Is patient prescribed a controlled substance at discharge?: No
== END ==
LOC: PNWHC3 12:55
PROVIDERS: ATTEND Specialist
DX: M48.062 Spinal stenosis, lumbar region with neurogenic claudication (principal); M47.26 Other spondylosis with radiculopathy, lumbar region; Z88.0 Allergy status to penicillin; Z88.2 Allergy status to sulfonamides
CPT/HCPCS: 99211

== ENCOUNTER → 2024-06-10 | Day surgery (SDC) | payer MEDICARE, OTHER ==
[2024-06-09 10:47] VITALS: BMI 29.3
[~2024-06-10] MED LIST changes: +IOPAMIDOL M300 15ML VIAL ONE; +LACTATED RINGERS 1,000 ML IV SCH; -LIDOCAINE 1% (10MG/ML) FOR IV START INTRADERMA PRN; +ROPIVACAINE 5MG/ML 20ML VIAL ONE; +methylPREDNISolone ACETATE 80 MG/ML 1 ML VIAL ONE
[2024-06-10 14:08] VITALS: RESP 16; TEMP 97.2
[2024-06-10 14:10] LABS: Glucose,Whole Blood 99 mg/dL (70-110)
--- NOTE | 2024-06-10 14:41 | P.PCN ---
Description of Procedure: PREOPERATIVE DIAGNOSIS: 1- Lumbar Degenerative Disc Diseases 2-Lumbar spondylosis with Facet arthropathy without myelopathy. 3-lumbar spinal stenosis POSTOPERATIVE DIAGNOSIS: 1-lumbar degenerative disc disease. 2-lumbar spondylosis with facet arthropathy without myelopathy. 3-lumbar spinal stenosis. PROCEDURE Injection of radio contrast material into L5-S1 interspace, interpretation of epidurogram, injection of steroid at L5-S1 epidural space under fluoroscopic guidance. ANESTHESIA: Lidocaine 1% subcutaneously. In OR continuous pulse ox, EKG, blood pressure and verbal communication was maintained with the patient. EBL: Minimal PROCEDURE INDICATION: Before the procedure were discussed with the patient detailed procedure, alternatives, complications including infection, bleeding, nerve damage, paralysis all of which could be permanent. Patient understands and all questions were answered. PROCEDURE DESCRIPTION : After getting consent, patient in OR in prone position. Back was prepped with chlorhexidine and draped in sterile fashion. After injecting 10 mL of 1% lidocaine subcutaneously, a 20-gauge Tuohy needle was introduced at L5-S1 interspace with loss of resistance technique using a syringe filled with air. Negative CSF, negative blood, negative paresthesia. Needle position was confirmed with AP and lateral view of the fluoroscope. After repeat negative aspiration 2 mL of Omnipaque 200 water soluble contrast was injected. Contrast was noted in the epidural space. No contrast was noted into intrathecal or intravascular space. After repeat negative aspiration 6 mL solution was injected intermittently which consists of 5 mL of preservative-free normal saline mixed with 1 mL of 80 mg Depo-Medrol. Needle was withdrawn intact. Skin was cleansed and Band-Aids was applied. DISPOSITION / PLANS: The patient tolerated the procedure well. No complication. The patient was placed in a supine position and transferred to the recovery area in a stable condition for observation. There was no evidence of lower extremity motor or sensory deficit after the procedure. Patient was discharged from the recovery room after meeting discharge criteria. Home discharge instructions were given to the patient by the staff. The patient was reexamined prior to discharge. The patient will schedule a follow up in the clinic in 2-4 weeks.
[2024-06-10 14:47] LABS: Glucose,Whole Blood 117 mg/dL (70-110)
[2024-06-10 14:50] VITALS: BP 173/77; PULSE 62
--- NOTE | 2024-06-10 14:57 | FL ---
EXAMINATION TYPE: FL guided pain mgmt statistic DATE OF EXAM: 06/10/2024 2:44 PM COMPARISON: Pre Operative Images if available both CT/MRI or plain film CLINICAL INDICATION: Female, 79 years old with history of Lumbar Epid Inj; TECHNIQUE: FL guided pain mgmt statistic, multiple fluoroscopic images provided for procedure. Total fluoroscopy time: 16.3 seconds Total submitted images to PACS: 2 DAP: [id number] mGym2 Gycm2 uGym2 cGycm2 or equivalent. FINDINGS: Fluoroscopic images during injection for pain management demonstrate multilevel degeneration changes throughout the spine. No evidence for fracture. No acute process identified. IMPRESSION: 1. No evidence for intraoperative complication. 2. Please see the operative/procedural note for further details. [facility], , 06/10/2024 2:55 PM
== END ==
LOC: ORPAIN 12:19
PROVIDERS: ATTEND Pain Medicine Interventional Pain Medicine
DX: M47.816 Spondylosis without myelopathy or radiculopathy, lumbar region (principal); M48.061 Spinal stenosis, lumbar region without neurogenic claudication; M51.369 Other intervertebral disc degeneration, lumbar region without mention of lumbar back pain or lower extremity pain; E11.9 Type 2 diabetes mellitus without complications; Z88.0 Allergy status to penicillin; Z88.2 Allergy status to sulfonamides; Z79.82 Long term (current) use of aspirin; Z79.899 Other long term (current) drug therapy
CPT/HCPCS: 62323

== ENCOUNTER → 2024-06-24 | Outpatient (CLI) | payer MEDICARE, OTHER ==
[2024-06-24 15:22] LABS: African American GFR (CKD) 83 (>60 ml/min/1.73 sqM); Blood Urea Nitrogen 39 mg/dL (7-17); Non-African American GFR(CKD) 72 (>60 ml/min/1.73 sqM)
--- NOTE | 2024-06-24 19:16 | CT ---
EXAMINATION TYPE: CT chest w con DATE OF EXAM: 06/24/2024 4:31 PM COMPARISON: 01/25/2024., 10/29/2023 CLINICAL INDICATION: Female, 79 years old with history of R91.8 NONSPECIFIC ABNORMAL FINDING OF LUNG FIELD; PHH, abnormal findings of lung field TECHNIQUE: Multiple axial images were obtained through the chest. Sagittal and coronal reformats were created for review. MIP was performed on a separate workstation. Contrast used:100 mL of Isovue 300 with IV Contrast (None if empty) Oral contrast used: (None if empty) CT DLP: 802 mGycm, Automated exposure control for dose reduction was used. FINDINGS: LUNGS/ PLEURA: No focal consolidation, pneumothorax or pleural effusion. Stable morphology to the an terior medial pulmonary nodule in the right upper lobe measuring up to 7 mm series 7 image 46 AIRWAY: Patent and unremarkable. HEART: Size within normal limits. MEDIASTINUM: No gross evidence of adenopathy. Small hiatal hernia. VASCULATURE: No aortic aneurysm. MUSCULOSKELETAL: Moderate disc degeneration changes are present throughout the thoracolumbar spine., moderate right joint effusion. Degeneration changes of the shoulders with joint space narrowing osteo phyte formation right greater than left. SOFT TISSUES/LYMPH NODES: Unremarkable. LOWER NECK: No significant findings. UPPER ABDOMEN: No significant findings. IMPRESSION: 1. Stable right upper lobe pulmonary nodule measuring 7 mm compared to 01/25/2024 best appreciated on sagittal imaging. No new or enlarging pulmonary nodules. Continued surveillance recommended. Findings at this point given stability from 10/29/2023 favor granulomatous change with malignancy felt to be l ess likely but not excluded. 2. Severe right shoulder osteoporosis with moderate joint effusion. [facility], , 06/24/2024 7:14 PM
== END | disposition home or self-care (01) ==
LOC: RADCTMAIN 14:31
PROVIDERS: ATTEND Internal Medicine Critical Care Medicine
DX: R91.8 Other nonspecific abnormal finding of lung field (principal); M81.0 Age-related osteoporosis without current pathological fracture; M25.411 Effusion, right shoulder; K44.9 Diaphragmatic hernia without obstruction or gangrene
CPT/HCPCS: 82565; 84520; 71260; 36415; Q9967

== ENCOUNTER → 2024-07-07 | Outpatient (CLI) | payer MEDICARE, OTHER ==
[2024-07-07 13:33] VITALS: BP 150/76; PULSE 67; RESP 16
--- NOTE | 2024-07-07 15:17 | P.PAINPG ---
PQRS Measure Charge Sheet Comment: HISTORY OF PRESENT ILLNESS: A 78 yr old female presents today w severe and chronic LBP > 1 yr secondary to radiculopathy, spondylosis and facet arthropathy without myelopathy for evaluation s/p SAMANTHA L5-S1 #1. Pt states she experienced 90% pain relief x 4 wks s/p procedure. Pt states pain level is provoked at 2 /10 in intensity, constant, localized in the lower lumbar sine, predominantly axial, achy in character w occasional shooting pain towards the BL calves. Pain is provoked by standing/ walking for periods > 10 min. Pain is alleviated by physician guided home stretches daily since Oct 2023, heat, medications, manual massage, repositioning and rest . Interventional procedures include SAMANTHA L5-S1 x1 Medications include Prednisone REVIEW OF ORGAN SYSTEMS: CONSTITUTIONAL: No fevers or chills. No recent weight loss. NEUROLOGICAL: + numbness and tingling along the distal extremities. No seizure disorders or headaches. MUSCULOSKELETAL: + pain PSYCHIATRIC: Denies current depression or suicidal thoughts. Physical Examinations : Constitutional : Cooperative , not in acute distress . Neurologic : Cranial nerve II to XII intact. No focal neurological deficits. Psychiatric : alert & oriented x 3. Matching mood & appropriate affect. Judgment & insight intact. Musculoskeletal : Cervical Spine Motor strength in the deltoid and biceps: Normal right side. Normal Left side Motor strength biceps and the wrist extensors: Normal right side . Normal left side Motor strength in the triceps muscle: Normal right side. Normal left side Deep tendon reflexes: Normal at the biceps. Normal at Brachioradialis. Normal at triceps Vertebral body tenderness to deep palpation over Cervical facet loading test: positive bilaterally Spurling test: positive bilaterally Neck distraction test: positive bilaterally Awrren sign: positive bilaterally Lumbar spine Motor strength lower extremities ,thigh and legs 5/5 Right side , 5/5 Left side Deep tendon reflexes : Normal Knee Jerk. Normal Ankle Jerk Vertebral body tenderness over L5 Thakkar Test positive BL L5-S1 Lumbar facet Loading Test: positive Right / positive Left Range of motion of the lumbar spine Flexion 30 degrees, extension 10 degrees Straight Leg Raise test: Left/ Right positive at degrees Rhianna test: positive right / positive left. Severe tenderness over the Sacroiliac joint on the Right / Left sides Gaenslen test: positive bilaterally Seated flexion test: positive bilaterally. Sacral spine : Severe tenderness over the Sacroiliac joint: right side / left side Range of motion: Flexion of the lumbar spine <60 degrees Range of motion: Extension of the lumbar spine <20 degrees Gaenslen's Test positive Rhianna test: positive right side / left side Thigh Thrust Test Sacral Thrust Test Imaging: MRI non contrast lumbar spine from 01/25/24 reviewed Assessment/ Plan : Lumbar radiculopathy Will manage residual pain and may RTC on an as needed basis. All questions answered. I have spent greater than 30 minutes on patient care today. Dr Gilbert was available by phone for the evaluation of this patient. The time was used to review the medical records including relevant urine studies and Prescription history (MAPs), review of the available imaging, evaluation and examination of the patient, coordination of care with the medical staff and if applicable referring physicians, as well as creation of the medical record PQRS Narrative: Hx Alcohol Use (MH) No Home Medications: Ambulatory Orders Cholecalciferol (Vitamin D3) [Vitamin D3 (125 MCG = 5,000 IU)] 125 mcg PO DAILY 09/23/23 Cyanocobalamin (Vitamin B-12) [Vitamin B-12] 1,000 mcg PO DAILY 09/23/23 Levothyroxine Sodium [Synthroid] 75 mcg PO QAM 09/23/23 Losartan [Cozaar] 50 mg PO HS 09/23/23 Meloxicam [Mobic] 15 mg PO DAILY 09/23/23 Pioglitazone [Actos] 30 mg PO DAILY 09/23/23 Vit No.179/Iron/Folic [ Tablet] 1 each PO DAILY 09/23/23 Rosuvastatin Calcium 10 mg PO DAILY 09/23/23 Valsartan 320 mg PO HS 09/23/23 atenoloL 100 mg PO QAM 09/23/23 oxyBUTYnin chloride 10 mg PO HS 09/23/23 predniSONE 3 mg PO QAM 09/23/23 Alirocumab [Praluent Pen] 150 mg SQ [id number] 05/30/24 Aspirin [Adult Low Dose Aspirin EC] 81 mg PO DAILY 05/30/24 Insulin Glargine,Hum.rec.anlog [Kerry Merida] 8 units SQ HS 05/30/24 Repaglinide [Prandin] 1 mg PO TID 05/30/24 amLODIPine [Norvasc] 5 mg PO DAILY 05/30/24 hydrALAZINE HCL 25 mg PO TID 05/30/24 Controlled Substance Measures - Controlled Substance Measures Is patient prescribed a controlled substance at discharge?: No
== END ==
LOC: PNWHC3 13:20
PROVIDERS: ATTEND Specialist
DX: M54.16 Radiculopathy, lumbar region (principal); Z88.0 Allergy status to penicillin; Z88.2 Allergy status to sulfonamides
CPT/HCPCS: 99211

== ENCOUNTER → 2024-09-23 | Outpatient (CLI) | payer MEDICARE, OTHER ==
--- NOTE | 2024-09-23 15:13 | MR ---
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 FINDINGS: Heart upper limits of normal in size. No pericardial effusion. Numerous cysts scattered throughout the pancreas measuring up to 1.0 cm. Liver normal size. Tiny 8 mm right liver lobe cyst. No biliary ductal dilatation. Portal venous syste m is patent. Gallbladder, adrenal glands, spleen with tiny inferior splenule appear within normal limits. Redemonstrated bilateral renal cortical cysts measuring up to 1.0 cm. Additional 1.1 cm cortical lesi on posterior mid right kidney shows bright T1 signal and dark T2 signal suggesting a hemorrhagic cyst . No hydronephrosis. Left-sided colonic diverticulosis. No abdominal ascites or upper abdominal adenopathy. Enhancing Modic type I endplate change associated with degenerative disc disease at L3-L4. Possible s evere focal spinal canal stenosis at this level. IMPRESSION: 1. Numerous scattered pancreatic cysts redemonstrated measuring up to 1.0 cm, possible multiple IPMN' s or sequela of chronic pancreatitis. As these cysts have not significantly changed and remains small , a benign etiology may be presumed. An additional one or 2 year follow-up may be considered as a pre cautionary measure. 2. Redemonstrated numerous bilateral renal cortical cysts. Left-sided colonic diverticulosis. Severe degenerative disc disease at L3-L4 with possible severe focal spinal canal stenosis. [facility], , 09/23/2024 3:11 PM
== END | disposition home or self-care (01) ==
LOC: RADMRIMAIN 13:37
PROVIDERS: ATTEND Family Medicine
DX: D37.8 Neoplasm of uncertain behavior of other specified digestive organs (principal); K86.2 Cyst of pancreas; N28.1 Cyst of kidney, acquired; K57.30 Diverticulosis of large intestine without perforation or abscess without bleeding; M51.369 Other intervertebral disc degeneration, lumbar region without mention of lumbar back pain or lower extremity pain
CPT/HCPCS: 74183; A9585

== ENCOUNTER → 2024-12-23 | Outpatient (CLI) | payer MEDICARE, OTHER ==
[2024-12-23 14:56] LABS: African American GFR (CKD) >90 (>60 ml/min/1.73 sqM); Blood Urea Nitrogen 42 mg/dL (7-17); Non-African American GFR(CKD) 78 (>60 ml/min/1.73 sqM)
--- NOTE | 2024-12-23 15:38 | CT ---
EXAMINATION TYPE: CT chest w con CT DLP: 355.6 mGycm, Automated exposure control for dose reduction was used. DATE OF EXAM: 12/23/2024 3:28 PM COMPARISON: CT chest 06/24/2024, 01/25/2024, PET CT 10/29/2023, CT chest 09/22/2023 CLINICAL INDICATION:Female, 79 years old with history of R91.8 ABNORMAL LUNG FIELD; [facility], follow up ab normal lung field TECHNIQUE: Multiple axial images were obtained through the chest following the administration of 100 cc of Isovue 300. . Coronal and sagittal reformats reviewed. FINDINGS: LUNGS/ PLEURA: No pleural effusion, pneumothorax, focal consolidation. Minimal medial bilateral lower lobe subsegmental atelectasis. Stable anterior medial right upper lobe 7.7 mm pulmonary nodule when measured with similar technique (series 4, image 24). Couple of stable calcified granulomas. No new or enlarging pulmonary nodule. Elevation of the right hemidiaphragm. AIRWAY: Patent and unremarkable.. HEART: Mildly prominent in size. . No pericardial effusion. No significant coronary artery calcificat ions. MEDIASTINUM: No gross evidence of adenopathy. VASCULATURE: No aortic aneurysm. Mild atherosclerotic calcification of the aorta and its branches. MUSCULOSKELETAL: No acute osseous abnormalities. Advanced right shoulder arthropathy. No aggressive o sseous lesion. Multilevel degenerative disc disease. SOFT TISSUES/LYMPH NODES: Unremarkable. LOWER NECK: No significant findings. UPPER ABDOMEN: Stable subcentimeter right hepatic lobe cyst. Small hiatal hernia. Stable bilateral re nal cortical cysts measuring up to 2.5 cm on the left. Fat-containing 1 cm right renal cortical lesio n consistent with angiomyolipoma No follow-up recommended. IMPRESSION: Stable right upper lobe 7.7 mm pulmonary nodule when measurement was similar technique. No new or enl arging pulmonary nodules. Continued follow-up is recommended with CT chest in 6 months. [facility], , 12/23/2024 3:36 PM
== END | disposition home or self-care (01) ==
LOC: RADCTMAIN 14:04
PROVIDERS: ATTEND Internal Medicine Critical Care Medicine
DX: R91.8 Other nonspecific abnormal finding of lung field (principal)
CPT/HCPCS: 82565; 84520; 71260; 36415; Q9967

== ENCOUNTER → 2025-02-03 | Outpatient (CLI) | payer MEDICARE, OTHER ==
--- NOTE | 2025-02-03 11:57 | MM ---
Reason for Exam: Screening (asymptomatic). Last screening mammogram was performed 12 month(s) ago. Patient History: Menarche at age 8. First Full-Term at age 20. Postmenopausal. Patient has history of breast feeding. Paternal aunt had breast cancer under age 50. Risk Values: Masha 5 year model risk: 1.6%. NCI Lifetime model risk: 2.5%. Prior Study Comparison: 09/14/2020 Bilateral Screening Mammogram, [facility]. 01/13/2023 Bilateral MG 3D screening mammo w/cad, [facility]. 01/20/2024 Bilateral MG 3D screening mammo w/cad, [facility]. Tissue Density: The breasts are heterogeneously dense, which may obscure small masses. Findings: Analyzed By CAD. There is no suspicious group of microcalcifications or new suspicious mass in either breast. Overall Assessment: Benign, BI-RAD 2 Management: Screening Mammogram of both breasts in 1 year. . Patient should continue monthly self-breast exams. A clinical breast exam by your physician is recommended on an annual basis. This exam should not preclude additional follow-up of suspicious palpable abnormalities. Note on Masha scores and lifetime risk: 1. A Masha score greater than 3% is considered moderate risk. If this is the case, consider specialist referral to assess eligibility for a risk reducing agent. 2. If overall lifetime risk for the development of breast cancer is 20% or higher, the patient may qualify for future screening with alternating mammogram and breast MRI. [facility], , 02/03/2025 11:54 AM. Electronically signed and approved by: Rigo Plata M.D. [facility]
== END | disposition home or self-care (01) ==
LOC: RADMAMWWP 11:29
PROVIDERS: ATTEND Family Medicine
DX: Z12.31 Encounter for screening mammogram for malignant neoplasm of breast (principal); R92.333 Mammographic heterogeneous density, bilateral breasts; Z80.3 Family history of malignant neoplasm of breast; Z78.0 Asymptomatic menopausal state
CPT/HCPCS: 77063; 77067